=== PATIENT | female | born 1945 | race Caucasian/White ===

== ENCOUNTER 2018-12-04 11:19 | Day surgery (SDC) | payer OTHER ==
[2018-12-02 13:03] VITALS: BMI 25.1
[2018-12-04] MEDS ORDERED: LIDOCAINE HCL/PF 2% SDV 5ML VIAL ONE (13:37)
[2018-12-04] MEDS ORDERED: PROPOFOL 20 ML ONE ×2 (13:37)
[2018-12-04 15:25] VITALS: BP 124/68; PULSE 69; TEMP 97.6
--- NOTE | 2018-12-06 15:33 | PATH ---
Surgical Pathology Report Patient Name: SHAYAN STOUT [facility]. Rec. #: [id number] /Age/Gender: 1945 (Age: 73) / F Account: [id number] Location: [facility] Taken: 12/04/2018 Received: 12/04/2018 Reported: 12/06/2018 Physicians: Shayna Islas M.D. Specimen(s) Received A: BX SECOND PORTION DUODENUM B: BX GASTRIC ANTRUM C: BX GASTRIC FUNDUS D: BX GASTRIC BODY POLYP E: BX GE JUNCTION Clinical History Abdominal pain Postoperative diagnosis: None given Final Diagnosis A. SECOND PORTION DUODENUM, BIOPSY: DUODENAL MUCOSA WITH NO PATHOLOGIC FINDINGS. B. 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 IMMUNOSTAIN SHOWS NUMEROUS H PYLORI ORGANISMS. C. GASTRIC FUNDUS, BIOPSY: MODERATE CHRONIC ACTIVE GASTRITIS. IMMUNOSTAIN SHOWS NUMEROUS H PYLORI ORGANISMS. D. GASTRIC BODY, POLYP, BIOPSY: POLYPOID GASTRITIS, MODERATE CHRONIC ACTIVE, WITH INTESTINAL METAPLASIA. NUMEROUS H. PYLORI ORGANISMS ARE PRESENT. E. 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 NEGATIVE FOR DYSPLASIA. Electronically Signed Angelika Park M.D. Gross Description A. Received in formalin, labeled "biopsy second portion of duodenum" is a ivan, irregular portion of soft tissue measuring 0.4 cm. in greatest dimension. The specimen is submitted in toto in one cassette. B. Received in formalin, labeled "biopsy gastric antrum" is a ivan, irregular portion of soft tissue measuring 0.3 cm. in greatest dimension. The specimen is submitted in toto in one cassette. C. Received in formalin, labeled "biopsy gastric fundus" is a ivan, irregular portion of soft tissue measuring 0.3 cm. in greatest dimension. The specimen is submitted in toto in one cassette. D. Received in formalin, labeled "biopsy gastric body polyp" is a ivan, irregular portion of soft tissue measuring 0.4 cm. in greatest dimension. The specimen is submitted in toto in one cassette. E. Received in formalin, labeled "biopsy GE junction" is a ivan, irregular portion of soft tissue measuring 0.5 cm. in greatest dimension. The specimen is submitted in toto in one cassette. DL/12/05/2018 saudi12/05/2018
== END 2018-12-04 14:20 | disposition home or self-care (01) ==
LOC: FASU-ENDO 11:19
PROVIDERS: ATTEND Internal Medicine Gastroenterology
PROC: 0DB48ZX Excision of Esophagogastric Junction, Via Natural or Artificial Opening Endoscopic, Diagnostic (ICD-10-PCS; 2018-12-04)
PROC: 0DB98ZX Excision of Duodenum, Via Natural or Artificial Opening Endoscopic, Diagnostic (ICD-10-PCS; principal; 2018-12-04 13:39)
PROC: 0DB68ZX Excision of Stomach, Via Natural or Artificial Opening Endoscopic, Diagnostic (ICD-10-PCS; 2018-12-04 13:39)
DX: K29.50 Unspecified chronic gastritis without bleeding (principal); B96.81 Helicobacter pylori [H. pylori] as the cause of diseases classified elsewhere; K31.89 Other diseases of stomach and duodenum; K31.7 Polyp of stomach and duodenum; R10.13 Epigastric pain; R10.9 Unspecified abdominal pain
CPT/HCPCS: 88305-TC; 88342-TC

== ENCOUNTER 2020-10-27 13:00 | Emergency (ER) | payer OTHER ==
[2020-10-27] MEDS ORDERED: BAMLANIVIMAB 700 MG in SODIUM CHLORIDE 250 ML IVPB ONE (13:13)
[2020-10-27 13:15] VITALS: BMI 25.7
[2020-10-27 13:42] LABS: BASO % 0.5 % (0-2.0); EOS % 1.3 % (0-4.5); HEMATOCRIT 40.6 % (32.4-45.2); HEMOGLOBIN 14.1 GM/dL (10.7-15.3); LYMPH % 28.5 % (8-40); MCH 31.4 pg (25.7-33.7); MCHC 34.7 g/dl (32.0-36.0); MEAN CELL VOLUME 90.4 fl (80-96); MONO % 8.5 % (3.8-10.2); NEUT % 61.2 % (42.8-82.8); PLATELET COUNT 208 K/MM3 (134-434); RBC 4.49 M/mm3 (3.60-5.2); RDW 13.2 % (11.6-15.6); WHITE BLOOD COUNT 5.4 K/mm3 (4.0-10.0)
[2020-10-27 14:08] LABS: ALBUMIN 3.9 g/dl (3.4-5.0); BLOOD UREA NITROGEN 22.5 mg/dL (7-18)
[2020-10-27 14:11] LABS: CREATININE 0.7 mg/dL (0.55-1.3)
[2020-10-27 14:13] LABS: BILIRUBIN,TOTAL 0.5 mg/dL (0.2-1); TOT PROT 7.9 g/dl (6.4-8.2)
[2020-10-27 14:19] LABS: CALCIUM 9.7 mg/dL (8.5-10.1)
[2020-10-27 16:16] VITALS: BP 148/74; PULSE 91; TEMP 97
== END 2020-10-27 16:22 | disposition home or self-care (01) ==
LOC: JER 13:00
PROC: 3E033GC Introduction of Other Therapeutic Substance into Peripheral Vein, Percutaneous Approach (ICD-10-PCS; principal; 2020-10-27)
DX: U07.1 COVID-19 (principal)
CPT/HCPCS: 36415; 71046-TC-FY; 80053; 85025; 99284-25; M0239; Q0239